=== PATIENT | male | born 1965 ===

== ENCOUNTER → 2016-08-11 | Outpatient (REF) | payer BC ==
[2016-08-11 11:36] LABS: BASO % 0.6 % (0.0-1.0); EOS # 0.2 K/mm3 (0.0-0.50); EOS % 2.9 % (0.0-3.0); LARGE UNSTAINED CELL # 0.1 K/mm3 (0.0-0.4); LARGE UNSTAINED CELL % 1.9 % (0.0-4.0); LYMPH # 0.8 K/mm3 (1.5-4.5); LYMPH % 13.1 % (24.0-44.0); MEAN CORPUSCULAR HEMOGLOBIN 27.7 pg (27.0-33.0); MEAN CORPUSCULAR HGB CONC 33.3 g/dl (32.0-36.5); MEAN CORPUSCULAR VOLUME 83.3 fl (80.0-96.0); MONO # 0.4 K/mm3 (0.0-0.8); MONO % 6.8 % (0.0-5.0); NEUTROPHILS # 4.8 K/mm3 (1.8-7.7); NEUTROPHILS % 74.7 % (36.0-66.0); PLATELET COUNT, AUTOMATED 309 k/mm3 (150-450); RED CELL DISTRIBUTION WIDTH 13.4 % (11.5-14.5); WHITE BLOOD COUNT 6.4 K/mm3 (4.0-10.0)
[2016-08-11 11:45] LABS: ANION GAP 7 MEQ/L (8-16); BLOOD UREA NITROGEN 15 MG/DL (7-18); CALCIUM LEVEL 9.5 MG/DL (8.5-10.1); CARBON DIOXIDE LEVEL 32 MEQ/L (21-32); CHLORIDE LEVEL 102 MEQ/L (98-107); CREATININE FOR GFR 1.65 MG/DL (0.70-1.30); GLOMERULAR FILTRATION RATE 47.2 (>56); GLUCOSE, FASTING 96 MG/DL (70-105); POTASSIUM SERUM 4.3 MEQ/L (3.5-5.1); SODIUM LEVEL 141 MEQ/L (136-145)
== END ==
LOC: M LAB REF 11:08
PROVIDERS: ATTEND Physician Assistant
DX: R07.9 Chest pain, unspecified (principal); J11.1 Influenza due to unidentified influenza virus with other respiratory manifestations

== ENCOUNTER → 2016-08-12 | Outpatient (REF) | payer BC ==
[2016-08-12 10:14] LABS: CALCIUM LEVEL 8.8 MG/DL (8.5-10.1); CREATININE FOR GFR 1.7 MG/DL (0.70-1.30); GLOMERULAR FILTRATION RATE 45.6 (>56); POTASSIUM SERUM 4.2 MEQ/L (3.5-5.1)
== END ==
LOC: M LAB REF 09:08
PROVIDERS: ATTEND Physician Assistant
DX: E86.0 Dehydration (principal)

== ENCOUNTER → 2016-08-19 | Outpatient (REF) | payer BC | LOC: M LAB REF 16:53 | PROVIDERS: ATTEND Internal Medicine Nephrology | DX: M62.82 Rhabdomyolysis (principal) ==

== ENCOUNTER → 2018-03-26 | Outpatient (CLI) | payer BC | LOC: M WUC 16:03 | DX: S83.412A Sprain of medial collateral ligament of left knee, initial encounter (principal); R60.0 Localized edema; X58.XXXA Exposure to other specified factors, initial encounter; Y92.9 Unspecified place or not applicable | CPT/HCPCS: 73564 ==

== ENCOUNTER → 2019-04-12 | Outpatient (REF) | payer BC | LOC: M LAB REF 13:20 | PROVIDERS: ATTEND Internal Medicine Nephrology | DX: N18.3 Chronic kidney disease, stage 3 (moderate) (principal); R80.9 Proteinuria, unspecified ==

== ENCOUNTER → 2019-11-17 | Outpatient (CLI) | payer BC ==
--- NOTE | 2019-11-17 16:00 | REP ---
SHOULDER: REASON: Muscular strain with pain. COMPARISON: No priors. FINDINGS: Three views of the shoulder were performed. The acromioclavicular and glenohumeral relationships are within normal limits. There is no acute fracture or destructive osseous lesion. 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 Consider MRI for further evaluation. Electronically Signed by Karl Juarez DO 11/17/2019 05:12 P
== END ==
LOC: M WUC 12:49
PROVIDERS: ATTEND Physician Assistant
DX: S46.011A Strain of muscle(s) and tendon(s) of the rotator cuff of right shoulder, initial encounter (principal); X58.XXXA Exposure to other specified factors, initial encounter; Y92.9 Unspecified place or not applicable